=== PATIENT | female | born 1975 | race Caucasian/White ===

== ENCOUNTER 2021-10-24 14:12 | Outpatient (CLI) | payer OTHER, SELFPAY | END 2021-10-24 14:13 | disposition home or self-care (01) | LOC: LONREF 14:14 | PROVIDERS: Visit Provider Obstetrics & Gynecology | DX: Z01.419 Encounter for gynecological examination (general) (routine) without abnormal findings (principal); Z12.4 Encounter for screening for malignant neoplasm of cervix | CPT/HCPCS: 87624; 88175 ==

== ENCOUNTER 2022-02-06 11:51 | Outpatient (CLI) | payer OTHER, SELFPAY ==
[2022-02-08 22:25] LABS: Rubella Antibody IgG 23.4 IU/mL
== END 2022-02-06 11:52 | disposition home or self-care (01) ==
PROVIDERS: Visit Provider Family Medicine
DX: Z01.419 Encounter for gynecological examination (general) (routine) without abnormal findings (principal); Z01.84 Encounter for antibody response examination; Z11.1 Encounter for screening for respiratory tuberculosis
CPT/HCPCS: 86480; 86735; 86762; 86765; 86787

== ENCOUNTER 2023-01-25 08:37 | Outpatient (CLI) | payer OTHER, SELFPAY ==
--- NOTE | 2023-01-25 08:45 | CRLHL7_ITS ---
For Patients: As a result of the Cures Act, medical imaging exams and procedure reports are released immediately into your electronic medical record. You may view this report before your referring provider. If you have questions, please contact your health care provider. BILATERAL SCREENING MAMMOGRAM WITH COMPUTER-AIDED DETECTION AND TOMOSYNTHESIS TECHNIQUE: CC and MLO views were obtained. These mammographic images have been obtained using full-field digital technique. These mammographic images were interpreted with the benefit of computer-aided detection. Breast Tomosynthesis was used in this interpretation. COMPARISON FILM: 09/22/21, 08/02/20. FINDINGS: The breasts are extremely dense, which lowers the sensitivity of mammography IMPRESSION: There is no radiographic evidence for malignancy. ASSESSMENT: BI-RADS Category 2: Benign RECOMMENDATION: Routine screening mammogram in 1 year. A lay language report of this examination will be provided to the patient. PAULA CAMARGO M.D. Diagnostic/Nuclear Medicine Radiologist [email or web address] MARJORIE:[email or web address] Transcribed: 2:44 p.[email or web address] cartwright/Dictated by: Paula Camargo MD @ 01/26/2023 8:43:00 AM (Electronically Signed)
== END 2023-01-25 08:38 | disposition home or self-care (01) ==
LOC: MAMMO 08:38
PROVIDERS: Visit Provider Surgery
DX: Z12.31 Encounter for screening mammogram for malignant neoplasm of breast (principal); R92.2 Inconclusive mammogram
CPT/HCPCS: 77063; 77067

== ENCOUNTER 2023-02-01 10:42 | Outpatient (RCR) | payer OTHER, SELFPAY | END 2023-07-31 23:59 | disposition home or self-care (01) | LOC: CCIC 10:42 | PROVIDERS: PCP Family Medicine; Visit Provider Internal Medicine Hematology & Oncology | DX: N60.91 Unspecified benign mammary dysplasia of right breast (principal) | CPT/HCPCS: 99202; 99205 ==

== ENCOUNTER 2023-04-07 10:31 | Outpatient (CLI) | payer OTHER, SELFPAY ==
--- NOTE | 2023-04-07 10:45 | CRLHL7_ITS ---
For Patients: As a result of the Century Cures Act, medical imaging exams and procedure reports are released immediately into your electronic medical record. You may view this report before your referring provider. If you have questions, please contact your health care provider. DIAGNOSTIC RIGHT BREAST MAMMOGRAM WITH COMPUTER-AIDED DETECTION AND TOMOSYNTHESIS RIGHT BREAST ULTRASOUND CLINICAL HISTORY: RIGHT breast lump. COMPARISON: 01/25/2023, 09/22/2021, 08/02/2020. TECHNIQUE: Digital right mammogram in 4 projections. Computer-aided detection and tomosynthesis were used. Real-time ultrasound imaging of RIGHT breast with imaging documentation. BREAST COMPOSITION: The breasts are heterogeneously dense, which may obscure small masses FINDINGS: 3D CC/MLO RIGHT breast mammogram images submitted. Post excisional biopsy changes are noted with scar tissue. No suspicious mass. No suspicious calcifications or adenopathy. Targeted RIGHT breast ultrasound performed in the area of concern adjacent to the nipple. Scar tissue is present. There is a small amount of fluid present measuring 1.6 x 0.4 cm. IMPRESSION: No suspicious findings. Postsurgical changes are present with tiny postop seroma. No evidence of malignancy. RECOMMENDATIONS: Routine screening mammography. BI-RADS Category 2: Benign Results and recommendations discussed with the patient. The [facility] will contact the patient for follow-up. Dictated by Stepan Funez MD @ 04/07/2023 11:20:20 AM/mariel ORTIZ/Dictated by: Stepan Funez MD @ 04/07/2023 11:20:00 AM (Electronically Signed)
--- NOTE | 2023-04-07 11:15 | CRLHL7_ITS ---
For Patients: As a result of the Century Cures Act, medical imaging exams and procedure reports are released immediately into your electronic medical record. You may view this report before your referring provider. If you have questions, please contact your health care provider. PLEASE SEE RIGHT BREAST DIAGNOSTIC MAMMOGRAM OF SAME DAY. CRL:mariel ORTIZ/Dictated by: Stepan Funez MD @ 04/07/2023 11:20:00 AM (Electronically Signed)
== END 2023-04-07 10:32 | disposition home or self-care (01) ==
LOC: MAMMO 10:32
PROVIDERS: PCP Family Medicine; Visit Provider Surgery
DX: N63.10 Unspecified lump in the right breast, unspecified quadrant (principal)
CPT/HCPCS: 76642; 77065; G0279

== ENCOUNTER 2023-06-25 09:28 | Outpatient (CLI) | payer OTHER, SELFPAY | END 2023-06-25 09:29 | disposition home or self-care (01) | PROVIDERS: PCP Family Medicine; Visit Provider Obstetrics & Gynecology | DX: Z13.220 Encounter for screening for lipoid disorders (principal); Z13.1 Encounter for screening for diabetes mellitus | CPT/HCPCS: 80061; 82947 ==

== ENCOUNTER 2023-07-19 09:45 | Outpatient (CLI) | payer OTHER, SELFPAY ==
--- NOTE | 2023-07-19 11:57 | W.ANESCHARGE ---
Anesthesia Charges Start Date/Time Anesthesia Start Date: 07/19/23 Anesthesia Start Time: 11:40 Stop Date/Time Anesthesia Stop Date: 07/19/23 Anesthesia Stop Time: 12:05
--- NOTE | 2023-07-19 12:10 | W.ANESCHARGE ---
Anesthesia Charges Start Date/Time Anesthesia Start Date: 07/19/23 Anesthesia Start Time: 11:40 Stop Date/Time Anesthesia Stop Date: 07/19/23 Anesthesia Stop Time: 12:05
== END 2023-07-19 09:46 | disposition home or self-care (01) ==
LOC: OP CLINIC 09:45
PROVIDERS: PCP Family Medicine; Visit Provider Surgery
DX: Z12.11 Encounter for screening for malignant neoplasm of colon (principal); Z80.0 Family history of malignant neoplasm of digestive organs
CPT/HCPCS: 00811; 00812; 45378; J2704

== ENCOUNTER 2024-02-29 16:30 | Outpatient (CLI) | payer OTHER, SELFPAY ==
--- NOTE | 2024-02-29 16:40 | CRLHL7_ITS ---
For Patients: As a result of the Cures Act, medical imaging exams and procedure reports are released immediately into your electronic medical record. You may view this report before your referring provider. If you have questions, please contact your health care provider. BILATERAL SCREENING MAMMOGRAM WITH COMPUTER-AIDED DETECTION AND TOMOSYNTHESIS TECHNIQUE: CC and MLO views were obtained. These mammographic images have been obtained using full-field digital technique. These mammographic images were interpreted with the benefit of computer-aided detection. Breast Tomosynthesis was used in this interpretation. COMPARISON FILM: 08/23/23 (MR), 04/07/23 (Right Diagnostic), 01/25/23, 09/22/21. FINDINGS: The breasts are heterogeneously dense, which may obscure small masses IMPRESSION: There is no radiographic evidence for malignancy. ASSESSMENT: BI-RADS Category 2: Benign RECOMMENDATION: Routine screening mammogram in 1 year. A lay language report of this examination will be provided to the patient. Stepan Funez M.D. Diagnostic Radiologist [email or web address]/[email or web address] Transcribed: 1:52 [email or web address] cartwright/Dictated by: Stepan Funez MD @ 03/02/2024 11:20:00 AM (Electronically Signed)
== END 2024-02-29 16:31 | disposition home or self-care (01) ==
LOC: MAMMO 16:32
PROVIDERS: PCP Family Medicine; Visit Provider Surgery
DX: Z12.31 Encounter for screening mammogram for malignant neoplasm of breast (principal); R92.333 Mammographic heterogeneous density, bilateral breasts
CPT/HCPCS: 77063; 77067